=== PATIENT | female | born 1960 | race African-American/Black ===

== ENCOUNTER 2020-05-27 08:54 | Emergency (ER) | payer BC, SELFPAY ==
[~2020-05-27 08:54] MED LIST: Sodium Chloride 0.9% 100 ML BAG ONE
[2020-05-27] MEDS ORDERED: cefTRIAXone\\ROCEPHIN 1 GM VIAL ONE (09:48)
[2020-05-27] MEDS ORDERED: Aspirin 325 MG TAB ONE (09:48)
[2020-05-27] MEDS ORDERED: Dexamethasone 10 MG/ML VIAL ONE (09:48)
[2020-05-27] MEDS ORDERED: Azithromycin 500 MG VIAL ONE (09:48)
[2020-05-27 09:53] LABS: ALT (SGPT) 29 U/L (8-55); AST (SGOT) 47 U/L (5-34); Albumin 4.1 g/dL (3.5-5.0); Alkaline Phosphatase 50 U/L (40-110); Anion Gap 16 mmol/L (10-20); BUN (Urea Nitrogen) 8 mg/dL (9.8-20.1); Bilirubin, Total 0.5 mg/dL (0.2-1.2); CK (CPK) 125 U/L (29-168); Calc. Creatinine Clearance 0 mL/min (70-130); Calcium 9.3 mg/dL (7.8-10.44); Carbon Dioxide 28 mmol/L (22-29); Chloride 102 mmol/L (98-107); Globulin 3.9 g/dL (2.4-3.5); Glucose 108 mg/dL (70-105); Potassium 3.7 mmol/L (3.5-5.1); Sodium 142 mmol/L (136-145)
[2020-05-27 10:00] LABS: Hemoglobin 14.4 g/dL (12.0-16.0); Mean Corpuscular HGB CONC 31.7 g/dL (32.0-36.0); Mean Corpuscular Hemoglobin 28.5 pg (27.0-31.0); Mean Platelet Volume 6.8 fL (7.4-10.4); Platelet Count 397 thou/uL (130-400); RBC Distribution Width 11.7 % (11.5-14.5); Red Blood Cell (RBC) Count 5.06 mill/uL (4.20-5.40)
[2020-05-27 10:13] LABS: Anisocytosis SLIGHT = 6-15 cells (100X) (0-5/hpf); Band 5 % (5-11); Lymphocytes 27 % (21-51); MDiff Complete? YES; Manual Diff?? YES; Monocytes 3 % (0-10); Neutrophil 65 % (42-75)
--- NOTE | 2020-05-27 10:13 | RAD ---
PORTABLE CHEST 1 VIEW: Date: 05/27/2020 Time: 0938 hours HISTORY: Dyspnea. FINDINGS: The heart size is borderline. There are multifocal patchy opacities in the lung dong bilaterally. N o pneumothoraces or pleural effusions are seen. IMPRESSION: Pneumonia. POS: OFF
[2020-05-27 10:14] LABS: Platelet Morphology Comment Appears Adequate
[2020-05-27 10:50] LABS: Bilirubin Negative (Negative); Blood, Urine Negative (Negative); Clarity Clear (Clear); Glucose, Urine (Dipstick) Negative (Negative); Ketone, Urine Negative (Negative); Leukocyte Negative (Negative); Nitrite Negative (Negative); Protein, Urine (Dipstick) 30 mg/dL (Neg-Trace); Specific Gravity, Urine 1.015 (1.005-1.030); Urobilinogen 0.2 mg/dL (Less than 2)
[2020-05-27 11:09] LABS: Bacteria/HPF 1+ HPF (None Seen); RBC/HPF 0-3 HPF (0-3); Squamous Epithelial 0-3 HPF (0-3); WBC/HPF None Seen HPF (0-3); Yeast-Budding Rare HPF (None Seen)
[2020-05-27 11:40] LABS: SARS-CoV-2 NAA Rapid Test DETECTED (NotDetected)
[2020-05-27] MEDS ORDERED: Enoxaparin Sodium 30 MG/0.3 ML SYRINGE ONE (12:18)
== END 2020-05-27 14:25 | disposition short-term general hospital (02) ==
LOC: MADERS 08:54
DX: U07.1 COVID-19 (principal); J12.82 Pneumonia due to coronavirus disease 2019; J96.91 Respiratory failure, unspecified with hypoxia
CPT/HCPCS: 0240U; 71045; 80053; 81003; 81015; 82550; 83605; 83880; 84484; 85025; 87040; 87086; 93005; 94760; 96365; 96367; 96372; 96375; J0456; J0696; J1100; J1650; J3490; J7050

== ENCOUNTER 2023-03-07 14:49 | Outpatient (CLI) | payer OTHER | END 2023-03-07 14:50 | disposition home or self-care (01) | LOC: MADRAD 14:49 | PROVIDERS: ATTEND Internal Medicine | DX: M25.552 Pain in left hip (principal) ==